=== PATIENT | male | born 1965 | race Caucasian/White ===

== ENCOUNTER → 2019-05-20 | Outpatient (CLI) | payer MEDICAID, MEDICARE, OTHER ==
--- NOTE | 2019-05-27 14:27 | REP ---
CT CHEST WITH IV CONTRAST: CT chest performed without IV contrast. Sagittal and coronal reconstruction images are performed. No pulmonary nodule is seen bilaterally. There is mild thickening of the bronchi and bronchioles which may indicate bronchitis. No consolidating infiltrate is seen. There is some minimal interstitial fibrotic scarring bilaterally. No axillary or mediastinal adenopathy is seen. A few subcentimeter lymph nodes are seen in the mediastinum. The heart is normal in size. There is no pleural or pericardial effusion. Thoracic aorta is normal in caliber. There are degenerative changes of the spine. The patient has had a prior cholecystectomy. IMPRESSION: No pulmonary nodule or consolidation. Mild thickening of the garcia of the bronchi and bronchioles suggests bronchitis. Electronically Signed by Ariel Bhardwaj MD 05/27/2019 02:53 P
== END ==
LOC: M RAD 17:28
PROVIDERS: ATTEND Family Medicine
DX: Z87.898 Personal history of other specified conditions (principal)

== ENCOUNTER → 2019-05-22 | Outpatient (REF) | payer MEDICARE | LOC: M LAB REF 15:30 | PROVIDERS: ATTEND Physician Assistant | DX: R05 Cough (principal) | CPT/HCPCS: 87486; 87581; 87633; 87798; U0002 ==

== ENCOUNTER 2019-09-02 22:34 | Emergency (ER) | payer MEDICARE, OTHER ==
[~2019-09-02] VITALS: Ht 177.8 cm; Wt 81.8 kg
[2019-09-02 23:10] LABS: HEMATOCRIT 49.1 % (42.0-52.0); HEMOGLOBIN 16.6 g/dl (13.5-17.5); MEAN CORPUSCULAR HEMOGLOBIN 30.7 pg (27.0-33.0); MEAN CORPUSCULAR HGB CONC 33.8 g/dl (32.0-36.5); MEAN CORPUSCULAR VOLUME 90.8 fl (80.0-96.0); PLATELET COUNT, AUTOMATED 198 10^3/uL (150-450); RED BLOOD COUNT 5.41 10^6/uL (4.30-6.10); WHITE BLOOD COUNT 8.8 10^3/uL (4.0-10.0)
[2019-09-02 23:34] LABS: AMPHETAMINES LEVEL URINE NEGATIVE (NEGATIVE); BARBITURATES URINE NEGATIVE (NEGATIVE); BENZODIAZEPINES URINE NEGATIVE (NEGATIVE); CANNABINOIDS URINE POSITIVE (NEGATIVE); COCAINE METABOLITE URINE NEGATIVE (NEGATIVE); METHADONE URINE NEGATIVE (NEGATIVE); OPIATES URINE NEGATIVE (NEGATIVE); PHENCYCLIDINE URINE NEGATIVE (NEGATIVE)
[2019-09-02 23:47] LABS: ACETAMINOPHEN LEVEL < 2.0 UG/ML (10.0-30.0); ALBUMIN 4.4 GM/DL (3.2-5.2); ALT/SGPT 41 U/L (12-78); BILIRUBIN,DIRECT 0.1 MG/DL (0.0-0.2); BILIRUBIN,TOTAL 0.3 MG/DL (0.2-1.0); BLOOD UREA NITROGEN 11 MG/DL (7-18); CALCIUM LEVEL 9.1 MG/DL (8.5-10.1); CARBON DIOXIDE LEVEL 25 MEQ/L (21-32); CHLORIDE LEVEL 107 MEQ/L (98-107); CREATININE FOR GFR 0.83 MG/DL (0.70-1.30); ETHYL ALCOHOL (ETHANOL) 0.346 % (0.000-0.010); GLOMERULAR FILTRATION RATE > 60.0 (>56); GLUCOSE, FASTING 96 MG/DL (70-100); POTASSIUM SERUM 3.9 MEQ/L (3.5-5.1); SALICYLATE LEVEL 2.6 MG/DL (5.0-30.0); SODIUM LEVEL 140 MEQ/L (136-145); TOTAL PROTEIN 8.1 GM/DL (6.4-8.2)
[2019-09-03 06:19] VITALS: BP 119/81
== END 2019-09-03 06:36 | disposition home or self-care (01) ==
LOC: M ED 22:34
DX: F10.129 Alcohol abuse with intoxication, unspecified (principal); Z13.29 Encounter for screening for other suspected endocrine disorder; E07.9 Disorder of thyroid, unspecified
CPT/HCPCS: 80048; 80076; 80307; 84443; 85027; 99283; G0480

== ENCOUNTER → 2019-09-15 | Outpatient (CLI) | payer MEDICARE, OTHER ==
[~2019-09-15] MED LIST: MARIJUANA MEDICAL PO; PROAAER10 INH
== END ==
LOC: M LABSMTC 10:19
PROVIDERS: ATTEND Surgery
DX: Z11.59 Encounter for screening for other viral diseases (principal)
CPT/HCPCS: C9803; U0003

== ENCOUNTER 2019-09-20 08:51 | Day surgery (SDC) | payer MEDICARE ==
[~2019-09-20] VITALS: Ht 182.9 cm; Wt 93.3 kg
[~2019-09-20 08:51] MED LIST changes: +LR 1,000 ML IV ONE
[2019-09-20] MEDS ORDERED: LIDOCAINE 2% 100MG/5ML SDV (FOR ANES.) As Ordered ONE (09:52)
[2019-09-20] MEDS ORDERED: propofoL 200 MG/20 ML VIAL As Ordered ONE (09:52)
[2019-09-20] MEDS ORDERED: ONDANSETRON 4MG/2ML VIAL As Ordered ONE (09:52)
[2019-09-20] MEDS ORDERED: fentaNYL 100 MCG/2 ML INJECTION (J3010) As Ordered ONE (09:55)
[2019-09-20] MEDS ORDERED: MIDAZOLAM INJ 2MG/2ML VIAL (J2250 PER 1MG) As Ordered ONE (09:55)
[2019-09-20] MEDS ORDERED: CHLOROPROCAINE PRES. FREE 3% 20ML VIAL As Ordered ONE (10:29)
[2019-09-20] MEDS ORDERED: MEPERIDINE INJ 25 MG/ML VIAL (J2175) IV PRN (11:15)
[2019-09-20] MEDS ORDERED: LR 1,000 ML IV SCH (11:15)
[2019-09-20] MEDS ORDERED: METOCLOPRAMIDE INJ 10MG/2ML VIAL (J2765 PER 1) IV PRN (11:15)
[2019-09-20] MEDS ORDERED: NORCO, ANEXSIA 5/325MG TABLET (HYDROcodone/ACETAMINOPHEN) PO PRN (11:15)
[2019-09-20] MEDS ORDERED: fentaNYL 100 MCG/2 ML INJECTION (J3010) IV PRN (11:15)
[2019-09-20] MEDS ORDERED: ONDANSETRON 4MG/2ML VIAL IV PRN (11:15)
[2019-09-20] MEDS ORDERED: oxyCODONE 5MG TAB PO PRN (11:15)
[2019-09-20 12:37] VITALS: BP 152/73
== END 2019-09-20 12:50 | disposition home or self-care (01) ==
LOC: M SDC 08:51
PROVIDERS: ATTEND Surgery
DX: K60.3 Anal fistula (principal); J44.9 Chronic obstructive pulmonary disease, unspecified; F43.10 Post-traumatic stress disorder, unspecified; F41.9 Anxiety disorder, unspecified; F17.218 Nicotine dependence, cigarettes, with other nicotine-induced disorders; Z79.51 Long term (current) use of inhaled steroids; F12.10 Cannabis abuse, uncomplicated
CPT/HCPCS: 46060; J2250; J2400; J2405; J3010

== ENCOUNTER → 2019-10-16 | Outpatient (CLI) | payer MEDICARE ==
[~2019-10-16] MED LIST changes: -LR 1,000 ML IV ONE
--- NOTE | 2019-11-29 10:09 | REP ---
ULTRASOUND ANTERIOR ABDOMINAL WALL HISTORY: Palpable lump, rule out ventral hernia. TECHNIQUE: Real-time sonographic evaluation of the anterior abdominal wall performed to the midline at the site of a palpable lump, in the upper abdomen. FINDINGS: At that location, there is a defect approximately 1.8 cm in diameter within the anterior abdominal wall musculature. There is peritoneal fat extending through the defect into the anterior abdominal wall. There is no bowel in the hernia. The hernia is not reducible. IMPRESSION: Upper abdominal midline ventral hernia containing peritoneal fat, but no bowel. The defect measures approximately 1.8 cm in diameter. The hernia is not reducible. MTDD
--- NOTE | 2019-11-29 10:10 | REP ---
SCROTAL ULTRASOUND HISTORY: Left testicular swelling for one year. TECHNIQUE: Real-time sonographic evaluation of the scrotum and contents performed. FINDINGS: Testicles normal in size and echotexture. Right testicle measuring 4.7 x 2.6 x 3.6 cm and left testicle 4.3 x 2.8 x 3.3 cm. There is no evidence of testicular mass or torsion. Blood flow is seen in each testicle with duplex Doppler evaluation. A 3 mm cyst is seen in the head of the right epididymis and a 4 mm cyst is seen in the head of the left epididymis. There are somewhat complex bilateral hydroceles, moderate in size, and somewhat larger on the left. Also on the left side, there are multiple septations within the hydrocele. IMPRESSION: No testicular mass or torsion. There are moderate bilateral hydroceles, left greater than right, with echogenic debris. In addition, there are multiple septations in the left hydrocele. MTDD
--- NOTE | 2019-11-29 10:11 | REP ---
BILATERAL INGUINAL ULTRASOUND HISTORY: Rule out inguinal hernia. TECHNIQUE: Real-time ultrasound evaluation of bilateral inguinal regions performed. Imaging is performed at rest and with Valsalva maneuver. FINDINGS: A small right inguinal hernia is present containing peritoneal fat with mild increase in size with Valsalva maneuver. There is no bowel in the hernia. No left inguinal hernia is seen. There are a couple of normal appearing lymph nodes in the right inguinal region. IMPRESSION: Small right inguinal hernia containing peritoneal fat, but no bowel. No left inguinal hernia. MTDD
== END ==
LOC: M RAD 09:23
PROVIDERS: ATTEND Surgery
DX: K43.9 Ventral hernia without obstruction or gangrene (principal); K40.90 Unilateral inguinal hernia, without obstruction or gangrene, not specified as recurrent; N43.3 Hydrocele, unspecified; R09.89 Other specified symptoms and signs involving the circulatory and respiratory systems

== ENCOUNTER → 2019-10-23 | Day surgery (SDC) | payer MEDICARE ==
[~2019-10-23] MED LIST changes: +LIDOCAINE 2% 100MG/5ML SDV (FOR ANES.) As Ordered ONE; +propofoL 200 MG/20 ML VIAL As Ordered ONE
== END | disposition home or self-care (01) ==
LOC: M OPP 08:54
PROVIDERS: ATTEND Surgery
DX: Z12.11 Encounter for screening for malignant neoplasm of colon (principal); Z53.29 Procedure and treatment not carried out because of patient's decision for other reasons

== ENCOUNTER → 2021-04-06 | Outpatient (CLI) | payer MEDICARE, MEDICAID ==
[~2021-04-06] MED LIST changes: +GASTROGRAFIN SOLUTION 30ML (Q9963) As Ordered ONE; +ISOVUE-370 76% 100ML VIAL As Ordered ONE; -LIDOCAINE 2% 100MG/5ML SDV (FOR ANES.) As Ordered ONE; -propofoL 200 MG/20 ML VIAL As Ordered ONE
== END ==
LOC: M RAD 13:15
PROVIDERS: ATTEND Surgery
DX: K57.90 Diverticulosis of intestine, part unspecified, without perforation or abscess without bleeding (principal); N50.89 Other specified disorders of the male genital organs; N28.1 Cyst of kidney, acquired
CPT/HCPCS: 74177; 76870; 93976; Q9963; Q9967

== ENCOUNTER → 2021-04-16 | Outpatient (CLI) | payer MEDICARE, MEDICAID ==
[~2021-04-16] MED LIST changes: -GASTROGRAFIN SOLUTION 30ML (Q9963) As Ordered ONE; -ISOVUE-370 76% 100ML VIAL As Ordered ONE
[2021-04-16 11:30] LABS: BLOOD UREA NITROGEN 12 MG/DL (7-18); CALCIUM LEVEL 8.9 MG/DL (8.5-10.1); CARBON DIOXIDE LEVEL 24 MEQ/L (21-32); CHLORIDE LEVEL 106 MEQ/L (98-107); CREATININE FOR GFR 0.71 MG/DL (0.70-1.30); GLOMERULAR FILTRATION RATE > 60.0 (>56); GLUCOSE, FASTING 98 MG/DL (70-100); POTASSIUM SERUM 3.9 MEQ/L (3.5-5.1); SODIUM LEVEL 139 MEQ/L (136-145)
== END ==
LOC: M LAB 09:34
PROVIDERS: ATTEND Surgery
DX: R10.13 Epigastric pain (principal)

== ENCOUNTER → 2021-05-20 | Outpatient (CLI) | payer MEDICARE, MEDICAID | LOC: M LABSMTC 11:09 | PROVIDERS: ATTEND Surgery | DX: Z12.11 Encounter for screening for malignant neoplasm of colon (principal); Z20.822 Contact with and (suspected) exposure to COVID-19 ==

== ENCOUNTER 2024-07-13 11:30 | Emergency (ER) | payer MEDICARE, MEDICAID ==
[~2024-07-13] VITALS: Ht 180.3 cm; Wt 84.5 kg
[2024-07-13 12:30] LABS: BASO % 0.5 % (0.0-1.0); EOS # 0.1 10^3/uL (0.0-0.5); EOS % 2.4 % (0.0-3.0); HEMATOCRIT 46.7 % (42.0-52.0); HEMOGLOBIN 15.5 g/dl (13.5-17.5); LYMPH # 1.4 10^3/uL (1.5-5.0); LYMPH % 24.6 % (24.0-44.0); MEAN CORPUSCULAR HEMOGLOBIN 31.4 pg (27.0-33.0); MEAN CORPUSCULAR HGB CONC 33.2 g/dl (32.0-36.5); MEAN CORPUSCULAR VOLUME 94.5 fl (80.0-96.0); MONO # 0.5 10^3/uL (0.0-0.8); MONO % 8.5 % (2.0-8.0); NEUTROPHILS # 3.7 10^3/uL (1.5-8.5); NEUTROPHILS % 63.7 % (36.0-66.0); PLATELET COUNT, AUTOMATED 149 10^3/uL (150-450); RED BLOOD COUNT 4.94 10^6/uL (4.30-6.10); WHITE BLOOD COUNT 5.8 10^3/uL (4.0-10.0)
[2024-07-13 12:56] LABS: BLOOD UREA NITROGEN 12 MG/DL (9-23); CALCIUM LEVEL 9.8 MG/DL (8.5-10.1); CARBON DIOXIDE LEVEL 31 MMOL/L (20-31); CHLORIDE LEVEL 104 MMOL/L (98-107); CREATININE FOR GFR 0.64 MG/DL (0.70-1.30); GLOMERULAR FILTRATION RATE > 90.0 (>56); GLUCOSE, FASTING 97 MG/DL (60-100); POTASSIUM SERUM 4.2 MMOL/L (3.5-5.1); SODIUM LEVEL 142 MMOL/L (136-145)
[2024-07-13] MEDS: KETOROLAC 30 MG/ML 1ML VIAL IV ONE (14:10)
[2024-07-13] MEDS ORDERED: IBUP-1022 PO ×2 (14:25→14:29)
[2024-07-13 14:34] VITALS: BP 148/89; TEMP 98.1; O2SAT 98
== END 2024-07-13 14:39 | disposition home or self-care (01) ==
LOC: M ED 11:30
DX: M75.31 Calcific tendinitis of right shoulder (principal); J44.9 Chronic obstructive pulmonary disease, unspecified; E78.5 Hyperlipidemia, unspecified; G40.909 Epilepsy, unspecified, not intractable, without status epilepticus; F17.210 Nicotine dependence, cigarettes, uncomplicated; Z79.1 Long term (current) use of non-steroidal anti-inflammatories (NSAID); Z79.51 Long term (current) use of inhaled steroids
CPT/HCPCS: 73030; 73060; 73070; 73090; 80048; 85025; 96374; 99284; J1885

== ENCOUNTER → 2024-10-02 | Outpatient (CLI) | payer MEDICARE, MEDICAID ==
[~2024-10-02] MED LIST changes: +IBUP-1022 PO
== END ==
LOC: M RAD 08:02
PROVIDERS: ATTEND Internal Medicine
DX: Z12.2 Encounter for screening for malignant neoplasm of respiratory organs (principal); F17.210 Nicotine dependence, cigarettes, uncomplicated; I25.10 Atherosclerotic heart disease of native coronary artery without angina pectoris; Z90.49 Acquired absence of other specified parts of digestive tract

== ENCOUNTER → 2024-10-14 | Outpatient (CLI) | payer MEDICARE, MEDICAID ==
[2024-10-14 09:01] LABS: BASO # 0.1 10^3/uL (0.0-0.2); BASO % 1.0 % (0.0-1.0); EOS # 0.2 10^3/uL (0.0-0.5); EOS % 3.4 % (0.0-3.0); LYMPH # 1.9 10^3/uL (1.5-5.0); LYMPH % 36.9 % (24.0-44.0); MONO # 0.5 10^3/uL (0.0-0.8); MONO % 9.8 % (2.0-8.0); NEUTROPHILS # 2.5 10^3/uL (1.5-8.5); NEUTROPHILS % 48.3 % (36.0-66.0); PLATELET COUNT, AUTOMATED 163 10^3/uL (150-450)
[2024-10-14 09:02] LABS: APPEARANCE, URINE CLEAR (CLEAR); BACTERIA, URINE AUTO NEGATIVE (NEGATIVE); BILIRUBIN, URINE AUTO NEGATIVE (NEGATIVE); BLOOD, URINE BLOOD NEGATIVE (NEGATIVE); GLUCOSE, URINE (UA) AUTO NEGATIVE (NEGATIVE); KETONE, URINE AUTO NEGATIVE (NEGATIVE); LEUKOCYTE ESTERASE, URINE AUTO NEGATIVE (NEGATIVE); MUCUS, URINE SMALL (NEGATIVE); NITRITE, URINE AUTO NEGATIVE (NEGATIVE); PROTEIN, URINE AUTO NEGATIVE (NEGATIVE); RBC, URINE AUTO 0 /HPF (0-3); SPECIFIC GRAVITY URINE AUTO 1.020 (1.002-1.035); SQUAMOUS EPITHELIAL CELL UR AU 0 /HPF (0-6); UROBILINOGEN, URINE AUTO 0.2 mg/dL (0.0-2.0); WBC, URINE AUTO 0 /HPF (0-3)
[2024-10-14 09:22] LABS: ESTIMATED AVERAGE GLUCOSE 103.0 MG/DL (60-110)
[2024-10-14 09:24] LABS: PSA SCREENING 3.12 NG/ML (< 4.00)
[2024-10-14 09:25] LABS: ALT/SGPT 37 U/L (7.0-40); AST/SGOT 20 U/L (<34); CALCIUM LEVEL 9.1 MG/DL (8.5-10.1); CARBON DIOXIDE LEVEL 30 MMOL/L (20-31); CHLORIDE LEVEL 107 MMOL/L (98-107); CHOLESTEROL LEVEL 180 MG/DL (<200); CHOLESTEROL RISK RATIO 2.81 (<5); CREATININE FOR GFR 0.70 MG/DL (0.70-1.30); GLOMERULAR FILTRATION RATE > 90.0 (>56); LDL CHOLESTEROL 101.0 MG/DL (<100); NON-HDL-C 116.0 MG/DL; POTASSIUM SERUM 4.5 MMOL/L (3.5-5.1); SODIUM LEVEL 145 MMOL/L (136-145); TRIGLYCERIDES LEVEL 75 MG/DL (<150)
[2024-10-14 09:54] LABS: HIV 1&2 SCREEN NEGATIVE (NEGATIVE)
[2024-10-14 10:01] LABS: HEPATITIS C VIRUS ABY INDEX < 0.02 INDEX (<0.8)
== END ==
LOC: M LAB 08:04
PROVIDERS: ATTEND Internal Medicine
DX: Z00.00 Encounter for general adult medical examination without abnormal findings (principal); E78.00 Pure hypercholesterolemia, unspecified; Z12.5 Encounter for screening for malignant neoplasm of prostate
CPT/HCPCS: 36415; 80053; 80061; 81001; 83036; 85025; 86803; 87389; G0103

== ENCOUNTER → 2024-11-28 | Outpatient (REF) | payer MEDICARE, MEDICAID ==
[~2024-11-28] MED LIST changes: -IBUP-1022 PO; +IBUP600T42 PO
== END ==
LOC: M SFHCPLAZ 15:34
PROVIDERS: ATTEND Family Medicine
DX: L72.0 Epidermal cyst (principal)